=== PATIENT | female | born 1975 | race Caucasian/White ===

== ENCOUNTER 2025-04-06 13:29 | Emergency (ER) | payer SELFPAY ==
[2025-04-06 13:36] VITALS: BP 120/78
[2025-04-06 14:01] LABS: Hematocrit 36.5 % (37.0-47.0); Hemoglobin 12.0 g/dL (12.0-16.0); Mean Corp Hgb Conc. 32.9 g/dL (33.0-37.0); Mean Corpuscular Volume 86.5 fL (81.0-99.0); Nucleated Red Blood Cells % 0 %; Platelet Count 234 10^3/uL (130-400); Red Cell Dist. Width 14.7 % (11.5-14.5)
[2025-04-06 14:27] LABS: ALT (SGPT) 18 U/L (0-35); AST (SGOT) 25 U/L (14-36); Albumin 4.4 g/dl (3.5-5.0); Alkaline Phosphatase 59 U/L (38-126); Blood Urea Nitrogen 16 mg/dl (7-17); Calcium 9.3 mg/dl (8.4-10.2); Carbon Dioxide 26 mmol/L (22-30); Chloride 105 mmol/L (98-107); Glucose 83 mg/dl (70-99); Potassium 3.8 mmol/L (3.5-5.1); Sodium 138 mmol/L (135-145); Total Protein 6.8 g/dl (6.3-8.2); eGFR > 60.00
[2025-04-06 14:31] LABS: HCG, Serum Qualitative Screen Negative
--- NOTE | 2025-04-06 16:02 | ED.GENMED ---
History of Present Illness
<Trinidad Israel PA-C - Last Filed: 04/07/25 06:55>
General
Chief Complaint: Dizziness
Source: patient
Exam Limitations: none
Time Seen by Provider: 04/06/25 15:42
Nursing documentation reviewed up to this point in time: agreed with
History of Present Illness
History of Present Illness:
Patient is a 49-year-old female who presents to the emergency department via EMS for lightheadedness and weakness. Patient states that yesterday morning she walked approximately 8 hours from [place] to [place]. She then states that she spent
the night at the [facility] as she had to go to the [facility] this morning to file paperwork for a divorce/custody agreements. She reports that she began walking back home to [place] when she started to feel weak and lightheaded
prior to locating someone in their driveway to call 911.
She reports feeling weak and dehydrated. She denies any chest pain, shortness of breath, or dizziness/sense of motion. No fever or chills.
She denies any suicidal ideations or homicidal ideations. No visual/auditory hallucinations.
She states she lives at home with her 4 children. Her 'ex-' lives upstairs in a separate unit. She does feel safe in her current living situation.
When asked why she walked from [place] yesterday she states that her 'did something to the battery of her car'. She denies any past psychiatric history.
Review of Systems
<Trinidad Israel PA-C - Last Filed: 04/07/25 06:55>
Review of Systems
Allergies reviewed?: Yes
All Other Systems: ROS reviewed and negative except as documented in HPI and ROS
Phy Exam
<Trinidad Israel PA-C - Last Filed: 04/07/25 06:55>
Physical Exam
Physical Exam:
Vitals: Patient's vital signs are stable
General: Patient is somewhat disheveled appearing.
Skin: Warm and dry, no rashes or lesions
Head: Normocephalic, atraumatic
Eyes: Sclera nonicteric. EOMs intact. No nystagmus.
Throat: Protecting airway
Neck: Normal ROM, no cervical spine tenderness, no meningismus
Cardiac: Regular rate and rhythm, no murmurs.
Pulm: Normal respiratory effort, no wheezes, rales, rhonchi heard on exam
Abdomen: Abdomen soft and nontender.
Extremities: No evidence of cyanosis or edema. Strength 5/5 in bilateral upper and lower extremities
Neuro: AAOx3. CN II-XII grossly intact. No focal neurologic deficits.
Psychiatric: Bizarre affect. No SI or HI. Not responding to any internal stimuli on exam
Course
<Trinidad Israel PA-C - Last Filed: 04/07/25 06:55>
Orders/Labs/Results
Orders:
Orders
04/06/25 13:42
EKG [Electrocardiogram (*1)] Urgent
Reason for Study: Vertigo / Dizzy
04/06/25 13:43
EKG- Treatment ONCE
Test Result ONCE
04/06/25 13:47
Complete Blood Count/With Diff Urgent
Comprehensive Metabolic Panel Urgent
Creatine Phosphokinase Urgent
Comment: ADD ON
HCG, Serum Qualitative Screen Urgent
Magnesium Urgent
Comment: ADD ON
04/06/25 16:16
Add On- LAB Urgent
Tests Added?: CPK, magnesium
0.9% Sodium Chloride 1000 ml [Nss] 1,000 ml IV BOLUS
04/06/25 16:26
Case Management Consult ONCE
Case Management Consult: Discharge Planning
04/06/25 18:05
Crisis Consult Urgent
Reason for Consult: mental health crisis
04/06/25 19:49
Urine Drug Abuse Screen Urgent
Date Specimen was Collected: 04/06/25
Time Specimen was Collected: 19:48
Abnormal Lab Results
04/06/25
13:47
Hct 36.5 L %
(37.0-47.0)
MCHC 32.9 L g/dL
(33.0-37.0)
RDW 14.7 H %
(11.5-14.5)
Neutrophils % 75.3 H %
(42.2-75.2)
Lymphocytes % 17.0 L %
(20.5-51.1)
Creatine Kinase 312 H U/L
(30-135)
04/06/25 13:47
04/06/25 13:47
Vital Signs
Initial and Last Documented VS:
Initial Vital Signs
Temp Pulse Resp BP Pulse Ox
98.4 F 89 18 120/78 100
04/06/25 13:36 04/06/25 13:36 04/06/25 13:36 04/06/25 13:36 04/06/25 13:36
Last Documented Vital Signs
Temp Pulse Resp BP Pulse Ox
98.4 F 89 18 111/62 97
04/06/25 13:36 04/06/25 19:15 04/06/25 20:00 04/06/25 19:00 04/06/25 19:15
<Kirsten Hsu MD - Last Filed: 04/06/25 20:44>
Orders/Labs/Results
Orders:
Orders
04/06/25 13:42
EKG [Electrocardiogram (*1)] Urgent
Reason for Study: Vertigo / Dizzy
04/06/25 13:43
EKG- Treatment ONCE
Test Result ONCE
04/06/25 13:47
Complete Blood Count/With Diff Urgent
Comprehensive Metabolic Panel Urgent
Creatine Phosphokinase Urgent
Comment: ADD ON
HCG, Serum Qualitative Screen Urgent
Magnesium Urgent
Comment: ADD ON
04/06/25 16:16
Add On- LAB Urgent
Tests Added?: CPK, magnesium
0.9% Sodium Chloride 1000 ml [Nss] 1,000 ml IV BOLUS
04/06/25 16:26
Case Management Consult ONCE
Case Management Consult: Discharge Planning
04/06/25 18:05
Crisis Consult Urgent
Reason for Consult: mental health crisis
04/06/25 19:49
Urine Drug Abuse Screen Urgent
Date Specimen was Collected: 04/06/25
Time Specimen was Collected: 19:48
Abnormal Lab Results
04/06/25
13:47
Hct 36.5 L %
(37.0-47.0)
MCHC 32.9 L g/dL
(33.0-37.0)
RDW 14.7 H %
(11.5-14.5)
Neutrophils % 75.3 H %
(42.2-75.2)
Lymphocytes % 17.0 L %
(20.5-51.1)
Creatine Kinase 312 H U/L
(30-135)
04/06/25 13:47
04/06/25 13:47
Vital Signs
Initial and Last Documented VS:
Initial Vital Signs
Temp Pulse Resp BP Pulse Ox
98.4 F 89 18 120/78 100
04/06/25 13:36 04/06/25 13:36 04/06/25 13:36 04/06/25 13:36 04/06/25 13:36
Last Documented Vital Signs
Temp Pulse Resp BP Pulse Ox
98.4 F 89 18 111/62 97
04/06/25 13:36 04/06/25 19:15 04/06/25 20:00 04/06/25 19:00 04/06/25 19:15
<Trinidad Israel PA-C - Last Filed: 04/07/25 06:55>
MDM/Problems Addressed
Differential Diagnosis Includes:
Not limited to: Acute dehydration, orthostatic hypotension, rhabdomyolysis, cardiac arrhythmia, acute psychosis, etc.
MDM/Problems Addressed:
34-year-old female presents with fatigue and near-syncope after walking for over eight hours yesterday. On arrival, she appears somewhat disheveled with a disorganized thought process and bizarre affect. She denies suicidal or homicidal ideation and
does not appear manic or acutely psychotic. Physical exam is otherwise unremarkable.
Labs notable for mildly elevated CPK, likely secondary to exertion and dehydration. Patient received 1L of IV fluids in the ED and reports symptomatic improvement. No evidence of acute medical illness requiring inpatient treatment.
Patient was evaluated by the crisis team during her ED visit. While she displays some unusual affect and disorganized thinking, she is not deemed to be a danger to herself or others at this time. There is no SI, HI, or evidence of acute psychiatric
crisis. Crisis staff provided her with appropriate outpatient psychiatric resources.
Patient requests discharge and verbalizes feeling safe at home. Discharged via [employer] in stable condition. Case discussed and patient evaluated with attending physician.
Chronic conditions affecting care:
N/A
Acute Exacerbation and/or Progression of Chronic Illness:
N/A
<Trinidad Israel PA-C - Last Filed: 04/07/25 06:55>
*Pulse Oximetry
SaO2: 100
Oxygen Mode of Delivery: Room air
Patient hypoxic: no
*EKG
Interpreted by ED Provider?: Yes
EKG Intrepretation Date: 04/06/25
Interpretation: normal
Comparison EKG: no comparison EKG present
Heart Rate: 90
Rate: normal
Rhythm: sinus
[place]: normal axis
Interval: normal QT interval
QRS Pattern: normal QRS
Ischemia: no ischemia
*[employer] Interpretation
Rate: [employer]- N/A
*Critical Care Note
Total Time (30-74mins, 75-104mins- exclusive of procedures): Not Applicable
ED Attending Note
<Trinidad Israel PA-C - Last Filed: 04/07/25 06:55>
-
Portions of this chart may have been created with voice recognition software.� Occasional wrong word or��sound alike� substitutions may have occurred due to the inherent limitations of voice recognition software.
<Kirsten Hsu MD - Last Filed: 04/06/25 20:44>
ED Attending Note
Patient seen and examined by attending physician: Yes
I performed the substantive portion of visit, reviewed & personally made and approve the management plan that is documented in note by myself or FESTUS.: Yes
ED Attending Note:
Patient is disorganized and has a bizarre affect, however, she is walking around the room steadily. She has no complaints of physical pain. She denies chest pain or shortness of breath. She reports she just filed for divorce but feels safe to go
home. Her heart sounds regular her lungs are clear. She reports she lives with her 4 children and feels safe at home.
Discharge Plan
Departure
Patient Disposition: Home (Routine Discharge)
Date of Disposition: 04/06/25
Time of Disposition: 20:44
Patient with high blood pressure during this ER visit?: No
Discharge Problem:
Acute dehydration, Lightheadedness
Instructions: Dehydration in adults - ED (DC)
Referrals:
UNKNOWN - PT DOES,NOT KNOW [Family Provider]
Activity Restrictions/Additional Instructions:
RETURN TO THE EMERGENCY DEPARTMENT WITH ANY CHEST PAIN, SHORTNESS OF BREATH, PERSISTENT LIGHTHEADEDNESS/DIZZINESS OR WEAKNESS, ANY CONCERNS FOR YOUR SAFETY, THOUGHTS OF HARMING YOURSELF OR OTHERS, OR ANY OTHER CONCERNS
- As discussed�your lab work showed evidence of mild dehydration. You were given a liter of IV fluids.
- Please follow-up with your primary care provider for further evaluation/management.
Monitor your symptoms closely return to the emergency department with any acute worsening/new symptoms or any concerns for your safety at home.
Interventions
Interventions:
*Risk Screen - Suicide Last Done: 04/06/25 13:36
*General Assessment Last Done: 04/06/25 13:36
*Neglect/Abuse Screening Last Done: 04/06/25 13:36
*ED- Fall Risk Assessment Last Done: 04/06/25 16:42
*ED COVID-19 Vaccine History Last Done: 04/06/25 13:36
*ED Influenza Vaccine History Last Done: 04/06/25 13:36
*Nursing Disposition Last Done: 04/06/25 21:24
ED- Neurological Assessment Last Done: 04/06/25 20:27
ED- Cardiac Assessment Last Done: 04/06/25 21:24
ED Swallowing Screen Last Done: 04/06/25 16:43
Discharge Date and Time
Discharge Date/Time: 04/06/25 21:25
Print Language: [id number]
[2025-04-06] MEDS: NSS 1000 IV (16:41)
[2025-04-06 16:42] VITALS: BMI 31.1
[2025-04-06 16:51] LABS: Magnesium 1.7 mg/dl (1.6-2.3)
[2025-04-06 17:00] VITALS: BP 110/69
[2025-04-06 18:00] VITALS: BP 103/56
[2025-04-06 19:00] VITALS: BP 111/62
== END 2025-04-06 21:25 | disposition home or self-care (01) ==
LOC: EMR 13:29
PROVIDERS: Physician Assistant; Student in an Organized Health Care Education/Training Program; EMERGENCY PHYSICIAN Emergency Medicine
DX: E86.0 Dehydration (principal); R42 Dizziness and giddiness
CPT/HCPCS: 96360; 99284; 80053; 80306; 82550; 83735; 84703; 85025; 93005